=== PATIENT | male | born 1995 | race Caucasian/White ===

== ENCOUNTER 2017-12-03 10:58 | Emergency (ER) | payer OTHER ==
--- NOTE | 2017-12-03 11:03 | EDPHY ---
H & P Time Seen by Provider: 12/03/17 11:02 HPI/ROS: CHIEF COMPLAINT: Vomiting HISTORY OF PRESENT ILLNESS: Previous diagnosis of peptic ulcer, vomited yesterday with 2 or 3"chunks"of blood and then vomited this morning with bile. Has epigastric discomfort which does not radiate but is worse with trying to eat or drink anything. Can't tolerate food or drink today. Not associated with fever or chills or black or bloody stools. No diarrhea. No difficulty with breathing. REVIEW OF SYSTEMS: Eye: no change in vision ENT: Little bit of a sore throat Cardiac: no chest pain or syncope Pulmonary: no cough or SOB Abdomen: HPI Musculoskeletal: no back pain Skin: no rash Neuro: no headache Constitutional: no fever : no urinary symptoms A comprehensive 10 point review of systems is otherwise negative aside from elements mentioned in the history of present illness. PAST MEDICAL HISTORY: History of peptic ulcer Social history: Nonsmoker, 1 drink alcohol last night General Appearance: Alert and conversant, cooperative. Eyes: No scleral icterus. ENT, Mouth: Normal mucous membranes. No epistaxis Respiratory: Normal respiratory effort, breath sounds equal, lungs are clear to auscultation. Cardiovascular: Regular rate and rhythm. Gastrointestinal: Epigastric tenderness but negative Phelps sign and no rebound or guarding. Neurological: Alert, face symmetric, normal motor and sensory in extremities. Skin: Warm and dry, no rashes. Musculoskeletal: No peripheral edema. No petechiae or bruising. Psychiatric: Not agitated. Emergency Department course/MDM: Normal saline 1 L IV and Zofran 4 mg for vomiting. More likely to be Evelin-Gordon tear than acute upper GI bleed, check CBC chemistry lipase and LFTs. GI cocktail and IV H2 kiley. [id number]: examined and improved, labs reviewed, referral to GI Constitutional: Initial Vital Signs Temperature (C) 37.2 C 12/03/17 11:03 Heart Rate 102 H 12/03/17 11:03 Respiratory Rate 20 12/03/17 11:03 Blood Pressure 144/91 H 12/03/17 11:03 O2 Sat (%) 98 12/03/17 11:03 O2 Delivery Mode Room Air Allergies/Adverse Reactions: No Known Allergies Allergy (Unverified 12/03/17 11:02) Home Medications: Medication Instructions Recorded Nexium 12/03/17 Pantoprazole Sodium [Protonix] 40 mg PO DAILY #15 tab 12/03/17 Medical Decision Making - Data Points Laboratory Results: Laboratory Results 12/03/17 11:21 12/03/17 11:21 12/03/17 12/03/17 11:21 11:21 WBC 8.93 10^3/uL 10^3/uL (3.80-9.50) RBC 5.02 10^6/uL 10^6/uL (4.40-6.38) Hgb 16.2 g/dL g/dL (13.7-17.5) Hct 44.1 % % (40.0-51.0) MCV 87.8 fL fL (81.5-99.8) MCH 32.3 pg pg (27.9-34.1) MCHC 36.7 g/dL g/dL (32.4-36.7) RDW 11.5 % % (11.5-15.2) Plt Count 224 10^3/uL 10^3/uL (150-400) MPV 10.2 fL fL (8.7-11.7) Neut % (Auto) 67.7 % % (39.3-74.2) Lymph % (Auto) 18.0 % % (15.0-45.0) Hayes % (Auto) 11.9 % % (4.5-13.0) Eos % (Auto) 1.8 % % (0.6-7.6) Baso % (Auto) 0.4 % % (0.3-1.7) Nucleat RBC Rel Count 0.0 % % (0.0-0.2) Absolute Neuts (auto) 6.04 10^3/uL 10^3/uL (1.70-6.50) Absolute Lymphs (auto) 1.61 10^3/uL 10^3/uL (1.00-3.00) Absolute Monos (auto) 1.06 10^3/uL H 10^3/uL (0.30-0.80) Absolute Eos (auto) 0.16 10^3/uL 10^3/uL (0.03-0.40) Absolute Basos (auto) 0.04 10^3/uL 10^3/uL (0.02-0.10) Absolute Nucleated RBC 0.00 10^3/uL 10^3/uL (0-0.01) Immature Gran % 0.2 % % (0.0-1.1) Immature Gran # 0.02 10^3/uL 10^3/uL (0.00-0.10) Sodium 139 mEq/L mEq/L (135-145) Potassium 4.2 mEq/L mEq/L (3.5-5.2) Chloride 105 mEq/L mEq/L (97-110) Carbon Dioxide 20 mEq/l L mEq/l (22-31) Anion Gap 14 mEq/L mEq/L (8-16) BUN 13 mg/dL mg/dL (7-23) Creatinine 1.0 mg/dL mg/dL (0.7-1.3) Estimated GFR > 60 Glucose 92 mg/dL mg/dL (70-100) Calcium 9.9 mg/dL mg/dL (8.5-10.4) Total Bilirubin 1.2 mg/dL mg/dL (0.1-1.4) Conjugated Bilirubin 0.4 mg/dL mg/dL (0.0-0.5) Unconjugated Bilirubin 0.8 mg/dL mg/dL (0.0-1.1) AST 27 IU/L IU/L (17-59) ALT 38 IU/L IU/L (21-72) Alkaline Phosphatase 74 IU/L IU/L (38-126) Total Protein 7.4 g/dL g/dL (6.3-8.2) Albumin 4.7 g/dL g/dL (3.5-5.0) Lipase 101 IU/L IU/L (23-300) Medications Given: Discontinued Medications Al Hydroxide/Mg Hydroxide (Maalox Susp) 30 ml PO ONCE ONE Stop: 12/03/17 11:14 Last Admin: 12/03/17 11:24 Dose: 30 ml Hyoscyamine Sulfate (Levsin, Hyomax-Sl) 0.25 mg PO ONCE ONE Stop: 12/03/17 11:14 Last Admin: 12/03/17 11:24 Dose: 0.25 mg Sodium Chloride (Ns) 1,000 mls @ 0 mls/hr IV EDNOW ONE; Wide Open PRN Reason: Protocol Stop: 12/03/17 11:14 Last Admin: 12/03/17 11:22 Dose: 1,000 mls Famotidine/Sodium Chloride (Pepcid 20 Mg (Premix)) 50 mls @ 200 mls/hr IV EDNOW ONE Stop: 12/03/17 11:27 Last Admin: 12/03/17 11:23 Dose: 50 mls Lidocaine (Lidocaine 2% Viscous) 15 ml PO ONCE ONE Stop: 12/03/17 11:14 Last Admin: 12/03/17 11:24 Dose: 15 ml Ondansetron HCl (Zofran) 4 mg IVP EDNOW ONE Stop: 12/03/17 11:14 Last Admin: 12/03/17 11:21 Dose: 4 mg Departure - Departure Disposition: Home, Routine, Self-Care Clinical Impression: Nausea & vomiting Qualifiers: Vomiting type: unspecified Vomiting Intractability: non-intractable Qualified Code(s): R11.2 - Nausea with vomiting, unspecified GERD (gastroesophageal reflux disease) Qualifiers: Esophagitis presence: esophagitis presence not specified Qualified Code(s): K21.9 - Gastro-esophageal reflux disease without esophagitis Condition: Good Instructions: Acute Nausea and Vomiting (ED) Referrals: Stephon Cruz MD [Medical Doctor] - As per Instructions Prescriptions: Pantoprazole Sodium [Protonix] 40 mg PO DAILY #15 tab
[2017-12-03 11:04] VITALS: TEMP 99
[2017-12-03] MEDS ORDERED: NS 1,000 ML IV ONE (11:13)
[2017-12-03] MEDS ORDERED: FAMOTIDINE 20 MG/NACL 50 ML IV ONE (11:13)
[2017-12-03] MEDS ORDERED: ONDANSETRON 4 MG/2 ML VIAL IVP ONE (11:13)
[2017-12-03] MEDS ORDERED: MAG HYDROX/AL HYDROX/SIMETH 30 ML UDCUP PO ONE (11:13)
[2017-12-03] MEDS ORDERED: LIDOCAINE 2% VISCOUS 15 ML UDCUP PO ONE (11:13)
[2017-12-03] MEDS ORDERED: HYOSCYAMINE SULFATE 0.125 MG TAB PO ONE (11:13)
[2017-12-03 11:29] LABS: PLATELET COUNT 224 10^3/uL (150-400)
[2017-12-03 12:52] VITALS: BP 101/72; PULSE 84; RESP 18; O2SAT 96
== END 2017-12-03 12:50 | disposition home or self-care (01) ==
DX: K21.9 Gastro-esophageal reflux disease without esophagitis (principal); E86.9 Volume depletion, unspecified
CPT/HCPCS: 96374; J2405